=== PATIENT | male | born 1980 | race Caucasian/White ===

== ENCOUNTER 2016-12-27 08:03 | Day surgery (SDC) | payer OTHER ==
[~2016-12-27 08:03] MED LIST: Depo-Medrol 40 MG/ML IM ONE; Kenalog-40 IM ONE; Sensorcaine 0.25% 10 ML IJ ONE
[2016-12-27] MEDS ORDERED: Lactated Ringers 1,000 ML IV ONE (08:09)
[2016-12-27] MEDS ORDERED: Lactated Ringers 1,000 ML IV SCH (08:30)
[2016-12-27] MEDS ORDERED: KEFZOL 1 GM/50 ML PREMIX** 50 ML IV ONE (08:59)
[2016-12-27 09:11] VITALS: BP 126/82; PULSE 53; O2SAT 96
[2016-12-27] MEDS ORDERED: XYLOCAINE 1% HCL 20 ML MDV ONE (10:39)
--- NOTE | 2016-12-27 12:11 | XRAY ---
Indication: Left L3-L5 medial branch block. Intraoperative fluoroscopy was provided for 12 seconds. Single frontal digital spot image submitted for interpretation demonstrates 4 posterior spinal needles with the tips projecting over the expected course of the left L3-L5 nerve roots. Correlate with intraoperative findings/report.
--- NOTE | 2016-12-27 13:24 | XRAY ---
12 seconds fluoroscopy time in surgery for Left medial branch block L3-5.
== END 2016-12-27 10:52 | disposition home or self-care (01) ==
LOC: SDC-PAIN 08:03
PROVIDERS: ATTEND Pain Medicine Interventional Pain Medicine
DX: M46.1 Sacroiliitis, not elsewhere classified (principal); M54.5 Low back pain; M47.816 Spondylosis without myelopathy or radiculopathy, lumbar region; Z79.899 Other long term (current) drug therapy
CPT/HCPCS: 64493; 64494; 64495; 72020; 77003; J0690; J1030; J3301

== ENCOUNTER 2017-04-04 12:54 | Day surgery (SDC) | payer OTHER ==
[~2017-04-04 12:54] MED LIST changes: -Depo-Medrol 40 MG/ML IM ONE; +Lactated Ringers 1,000 ML IV ONE
[2017-04-04] MEDS ORDERED: XYLOCAINE 1% HCL 20 ML MDV ONE (14:16)
--- NOTE | 2017-04-04 17:19 | XRAY ---
13 seconds fluoroscopy time in surgery for left side L2-5 MBB.
--- NOTE | 2017-04-06 02:46 | XRAY ---
Indication: Left L2-L5 MBB. Intraoperative fluoroscopy was provided for 13 seconds. Single digital spot images submitted for interpretation demonstrates 4 posterior spinal needles with the tips projected over the expected course of the left L2-L5 nerve roots. Correlate with intraoperative findings/report.
== END 2017-04-04 14:40 | disposition home or self-care (01) ==
LOC: SDC-PAIN 12:54
PROVIDERS: ATTEND Pain Medicine Interventional Pain Medicine
DX: M46.1 Sacroiliitis, not elsewhere classified (principal); M54.5 Low back pain; M47.816 Spondylosis without myelopathy or radiculopathy, lumbar region; M51.36 Other intervertebral disc degeneration, lumbar region
CPT/HCPCS: 64493; 64494; 64495; 72020; 77003; J3301

== ENCOUNTER 2024-04-16 16:32 | Emergency (ER) | payer MEDICAID, OTHER ==
[2024-04-16 16:45] VITALS: BP 132/86; PULSE 84; RESP 24; TEMP 98.4; O2SAT 97
--- NOTE | 2024-04-16 16:57 | ERPHSYRPT ---
- History of Present Illness Time Seen by Provider: 04/16/24 16:45 Source: patient Exam Limitations: no limitations Patient Subjective Stated Complaint: pt states that in February he had some chest pain, today he feels some electrical shocks going up to his head, the other ni ght he was laying in bed and his torso jumped up in the air without him doing it, his legs also will jump in the air Triage Nursing Assessment: Pt was brought to the ER by someone else, vitals wnl, denies pain at this time, not sure if this man thinks correctly, pulses normal, skin n/w/d, no difficulty breathting, denies chest pain, doesn't appear to be in any distress Timing/Duration: today Severity: mild Associated Symptoms: denies symptoms Allergies/Adverse Reactions: Sulfa (Sulfonamide Antibiotics) [Sulfa(Sulfonamide Antibiotics)] Allergy (Verified 04/16/24 16:46) STOPPED BREATHING Home Medications: No Reportable Medications [No Reported Medications] 04/16/24 [History] Hx Tetanus, Diphtheria Vaccination/Date Given: No (UNKOWN) Hx Influenza Vaccination/Date Given: No Hx Pneumococcal Vaccination/Date Given: No Travel Risk - International Travel Have you traveled outside of the country in past 3 weeks: No - Emerging Infectious Disease Are you exhibiting symptoms associated with any current EIDs: No - Review of Systems Eyes: No Symptoms Ears, Nose, & Throat: No Symptoms Respiratory: No Symptoms Cardiac: No Symptoms Abdominal/Gastrointestinal: No Symptoms Genitourinary Symptoms: No Symptoms Musculoskeletal: No Symptoms Skin: No Symptoms Neurological: No Symptoms Psychological: No Symptoms Endocrine: No Symptoms - Past Medical History Pertinent Past Medical History: Yes Neurological History: No Pertinent History Cardiac History: No Pertinent History Respiratory History: No Pertinent History Endocrine Medical History: No Pertinent History Musculoskeletal History: No Pertinent History, Fractures GI Medical History: Hernia - Past Surgical History Past Surgical History: Yes Gastrointestinal: Hernia Repair Musculoskeletal: Orthopedic Surgery Other Surgical History: HERNIA REPAIR X 2 LEFT LEG PIN - Social History Smoking Status: Current some day smoker Exposure to second hand smoke: Yes Drug Use: none Patient Lives Alone: No - Social Determinants of Health Will the patient participate in the screening: Declined to provide - Nursing Vital Signs Nursing Vital Signs: Initial Vital Signs Temperature 98.4 F 04/16/24 16:37 Pulse Rate 84 04/16/24 16:37 Respiratory Rate 24 04/16/24 16:37 Blood Pressure 132/86 04/16/24 16:37 O2 Sat by Pulse Oximetry 97 04/16/24 16:37 Pain Scale Pain Intensity 0 - Physical Exam General Appearance: no apparent distress Eye Exam: PERRL/EOMI Ears, Nose, Throat Exam: normal ENT inspection Neck Exam: normal inspection Respiratory Exam: normal breath sounds Cardiovascular Exam: regular rate/rhythm Gastrointestinal/Abdomen Exam: soft, normal bowel sounds Neurologic Exam: alert, oriented x 3 Skin Exam: normal color, warm SpO2: 97 Ordered Tests: Active Orders 24 hr Category Date Time Status CMP Stat Lab 04/16/24 17:10 Completed MAGNESIUM Stat Lab 04/16/24 17:10 Completed Lab/Rad Data: Laboratory Result Diagrams 04/16/24 17:10 Laboratory Results 04/16/24 Range/Units 17:10 Sodium 140 (135-145) mmol/L Potassium 3.8 (3.5-5.1) mmol/L Chloride 103 (98-107) mmol/L Carbon Dioxide 27 (22-30) mmol/L Anion Gap 13.4 (5-15) MEQ/L BUN 18 (9-20) mg/dL Creatinine 0.99 (0.66-1.25) mg/dL Estimated GFR 96.3 ML/MIN Glucose 99 (74-106) mg/dL Calcium 9.9 (8.4-10.2) mg/dL Magnesium 2.3 (1.6-2.3) mg/dL Total Bilirubin 0.80 (0.2-1.3) mg/dL AST 18 (17-59) U/L ALT 14 (0-50) U/L Alkaline Phosphatase 51 (38-126) U/L Serum Total Protein 7.6 (6.3-8.2) g/dL Albumin 4.7 (3.5-5.0) g/dL - Progress Progress Note: Patient was updated with his lab results and informed of the need for follow-up he has no further questions at this time 04/16/24 18:01 Medical Desision Making - Discussion of managment Agreed on:: need for follow-up - Departure Clinical Impression: Palpitations Condition: Good Critical Care Time: No
[2024-04-16 17:39] LABS: ALBUMIN 4.7 g/dL (3.5-5.0); ANION GAP 13.4 MEQ/L (5-15); BILIRUBIN,TOTAL 0.8 mg/dL (0.2-1.3); Calcium 9.9 mg/dL (8.4-10.2); Creatinine 1 0.99 mg/dL (0.66-1.25); EST GLOMERULAR FILTRATION RATE 96.3 ML/MIN; MAGNESIUM 2.3 mg/dL (1.6-2.3); Potassium 3.8 mmol/L (3.5-5.1); Total Protein 7.6 g/dL (6.3-8.2)
== END 2024-04-16 18:11 | disposition home or self-care (01) ==
LOC: ED 16:32
DX: R00.2 Palpitations (principal); Z72.0 Tobacco use
CPT/HCPCS: 36415; 80053; 83735; 99282